=== PATIENT | male | born 1975 | race Caucasian/White ===

== ENCOUNTER 2018-01-04 16:04 | Emergency (ER) | payer MEDICAID ==
[~2018-01-04] VITALS: Ht 162.6 cm; Wt 54.3 kg
[2018-01-04 16:06] VITALS: BP 150/107
[2018-01-04] MEDS ORDERED: IBUP-1986 PO (17:00)
[2018-01-04] MEDS: ibuprofen tablet 400 MG TABLET PO ONE ×2 (17:09→17:13)
[2018-01-04] MEDS ORDERED: HYDROcodone/acetaminophen 10/325mg tab PO ONE (17:20)
== END 2018-01-04 18:16 | disposition home or self-care (01) ==
LOC: ER 16:04
DX: S62.306A Unspecified fracture of fifth metacarpal bone, right hand, initial encounter for closed fracture (principal); F12.10 Cannabis abuse, uncomplicated; G62.9 Polyneuropathy, unspecified; Z98.890 Other specified postprocedural states; Y09 Assault by unspecified means; Y93.89 Activity, other specified; Y92.89 Other specified places as the place of occurrence of the external cause; Y99.8 Other external cause status
CPT/HCPCS: 29125; 73130; 99284; A6449; 29105

== ENCOUNTER 2021-06-06 17:50 | Emergency (ER) | payer MEDICAID ==
[~2021-06-06 17:50] MED LIST: IBUP-1986 PO
== END 2021-06-06 21:13 | disposition left against medical advice (07) ==
LOC: ER 17:50
DX: Z53.21 Procedure and treatment not carried out due to patient leaving prior to being seen by health care provider (principal)